=== PATIENT | male | born 1955 | race African-American/Black ===

== ENCOUNTER 2022-09-17 10:28 | Inpatient (IN) | payer OTHER ==
[~2022-09-17] VITALS: Ht 182.9 cm; Wt 97.1 kg
[2022-09-17 11:09] LABS: Basophils # (auto) 0 10 ^3/uL (0-0.2); Basophils % (auto) 0.7 % (0.0-2.0); Eosinophils # (auto) 0.1 10 ^3/uL (0-0.8); Eosinophils % (auto) 1.9 % (0.0-7.0); Hematocrit 46.4 % (41.0-53.0); Hemoglobin 15.5 g/dL (13.5-17.5); Lymphocytes # (auto) 2.9 10 ^3/uL (0.4-5.4); Lymphocytes % (auto) 47.5 % (10.0-50.0); Mean Corpuscular Hemoglobin 29.1 pg (28.0-32.0); Mean Corpuscular Hgb Conc. 33.5 g/dL (32.0-36.0); Mean Corpuscular Volume 86.9 fL (80.0-100.0); Monocytes # (auto) 0.6 10 ^3/uL (0-1.3); Monocytes % (auto) 9.9 % (0.0-12.0); Neutrophils # (auto) 2.4 10 ^3/uL (1.6-8.6); Nucleated Red Blood Cells % 0.1 %; Red Blood Cells 5.33 10^6/uL (4.5-5.90); Red Cell Distribution Width 14.1 % (11.8-14.3)
[2022-09-17 11:45] LABS: Albumin 3.8 g/dL (3.4-5.0); BUN/Creatinine Ratio 15.8; Bilirubin, Total 0.5 mg/dL (0.2-1.0); Calcium 9.2 mg/dL (8.5-10.1); Potassium 4.3 mmol/L (3.5-5.1); Total Protein 7.4 g/dL (6.4-8.2)
[2022-09-17] MEDS ORDERED: ACETAMINOPHEN 325 MG TAB PO PRN (13:45)
[2022-09-17] MEDS ORDERED: NITROGLYCERIN 0.4 MG SL TAB SL PRN (13:45)
[2022-09-17] MEDS ORDERED: ONDANSETRON HCL 4 MG/2 ML VIAL IV PRN (13:45)
[2022-09-17] MEDS ORDERED: MORPHINE SULFATE INJ 2 MG/ml SYRG IV PRN (13:45)
[2022-09-17] MEDS ORDERED: KETOROLAC TROMETH 30 MG/ML 1ML VIAL IV PRN (14:30)
[2022-09-17 15:28] LABS: Cholesterol 202 mg/dL (< 200); HDL Cholesterol 66 mg/dL (40-59); LDL Cholesterol 120 mg/dL (< 100); Triglycerides 94 mg/dL (< 150)
[2022-09-18] MEDS ORDERED: cloNIDine HCL 0.1 MG TAB PO ONE (01:45)
[2022-09-18] MEDS: SODIUM CHLORIDE 0.9% 1,000 ML IV SCH ×2 (08:25→12:45)
[2022-09-18 09:06] LABS: Basophils # (auto) 0.1 10 ^3/uL (0-0.2); Eosinophils # (auto) 0.1 10 ^3/uL (0-0.8); Eosinophils % (auto) 1.3 % (0.0-7.0); Hematocrit 45.3 % (41.0-53.0); Hemoglobin 15.3 g/dL (13.5-17.5); Lymphocytes % (auto) 41.4 % (10.0-50.0); Mean Corpuscular Hemoglobin 29.4 pg (28.0-32.0); Mean Corpuscular Hgb Conc. 33.6 g/dL (32.0-36.0); Mean Corpuscular Volume 87.5 fL (80.0-100.0); Monocytes # (auto) 0.8 10 ^3/uL (0-1.3); Monocytes % (auto) 11.2 % (0.0-12.0); Neutrophils # (auto) 3.3 10 ^3/uL (1.6-8.6); Neutrophils % (auto) 45.1 % (37.0-80.0); Nucleated Red Blood Cells % 0.1 %; Red Blood Cells 5.18 10^6/uL (4.5-5.90); Red Cell Distribution Width 14.3 % (11.8-14.3); White Blood Cell 7.2 10^3/uL (4.4-10.8)
[2022-09-18 09:35] LABS: Albumin 4.1 g/dL (3.4-5.0); BUN/Creatinine Ratio 14.9; Bilirubin, Total 0.9 mg/dL (0.2-1.0); Calcium 9.2 mg/dL (8.5-10.1); Potassium 4.2 mmol/L (3.5-5.1); Total Protein 7.8 g/dL (6.4-8.2)
[2022-09-18 10:30] VITALS: BP 165/95
[2022-09-18 12:00] VITALS: BP 165/95
[2022-09-18] MEDS ORDERED: TEMAZEPAM 15 MG CAP PO PRN (12:00)
[2022-09-18] MEDS ORDERED: ASPI1TAB19 PO (12:00)
[2022-09-18] MEDS ORDERED: ATO40T PO (12:01)
[2022-09-18] MEDS: ASPirin-EC 81 mg tab PO SCH (12:42)
[2022-09-18] MEDS ORDERED: hydrALAZINE HCL 25 MG TAB PO PRN (13:45)
[2022-09-18] MEDS ORDERED: hydrALAZINE HCL 20 MG/ML VL IV PRN (13:45)
[2022-09-18 14:44] VITALS: BP 129/88
[2022-09-18 16:00] VITALS: BP 154/84
[2022-09-18 20:00] VITALS: BP 149/91
[2022-09-18 22:00] VITALS: BP 166/98
[2022-09-18] MEDS ORDERED: ATORVASTATIN 20 MG TAB PO SCH (22:00)
[2022-09-19] VITALS (8 sets, daily range): BP systolic 149–163; BP diastolic 80–102
[2022-09-19] MEDS: SODIUM CHLORIDE 0.9% 1,000 ML IV SCH ×2 (05:18→15:55)
[2022-09-19] MEDS: ASPirin-EC 81 mg tab PO SCH (09:50)
[2022-09-19] MEDS: ATORVASTATIN 20 MG TAB PO SCH (09:50)
[2022-09-19] MEDS ORDERED: PATIENTS OWN MEDICATION (Atorvastatin Calcium (Lipitor) 1 TAB) PO SCH (10:00)
[2022-09-20] VITALS (7 sets, daily range): BP systolic 144–180; BP diastolic 76–111
[2022-09-20] MEDS: SODIUM CHLORIDE 0.9% 1,000 ML IV SCH ×2 (02:11→11:45)
[2022-09-20] MEDS: ASPirin-EC 81 mg tab PO SCH (10:16)
[2022-09-20] MEDS: ATORVASTATIN 20 MG TAB PO SCH (10:16)
[2022-09-20] MEDS ORDERED: AMLO-496 PO (11:01)
[2022-09-20] MEDS ORDERED: amLODIPine BESYLATE 5 MG TAB PO ONE (11:15)
[2022-09-20] MEDS ORDERED: cloNIDine HCL 0.1 MG TAB PO ONE (12:45)
[2022-09-20] MEDS ORDERED: CLON0.1T PO (12:49)
== END 2022-09-20 15:04 | disposition home or self-care (01) | DRG 305 ==
LOC: ER 10:28 → TELE 13:39 → TELE-WESTW 09-18 09:40
PROVIDERS: ADMIT Nurse Practitioner Family; ATTEND Internal Medicine
DX: I16.9 Hypertensive crisis, unspecified (principal); I25.10 Atherosclerotic heart disease of native coronary artery without angina pectoris; E78.5 Hyperlipidemia, unspecified; Z20.822 Contact with and (suspected) exposure to COVID-19; F10.90 Alcohol use, unspecified, uncomplicated; Y90.9 Presence of alcohol in blood, level not specified; I25.2 Old myocardial infarction; Z95.1 Presence of aortocoronary bypass graft; Z87.891 Personal history of nicotine dependence
CPT/HCPCS: 36415; 71045; 80053; 80061; 83036; 83880; 84443; 84484; 85025; 85379; 87426; 93005; 93306; G0378